=== PATIENT | male | born 1950 | race Caucasian/White ===

== ENCOUNTER 2021-09-29 17:13 | Emergency (ER) | payer MEDICARE, OTHER ==
[~2021-09-29 17:13] MED LIST: ALDACTONE100 MG PO; ASPIRIN EC81 MG PO; IRON18 MG PO; ISOSORBIDE MONO60 MG PO; LIPITOR40 M1 PO; METFORMIN HCL500 MG PO; MIDODRINE HCL10 MG PO; ONDANSETRON ODT4 MG PO; PLAVIX75 MG PO; PROTONIX 40MG T40 MG PO; RANEXA500 MG PO
[2021-09-29 17:48] LABS: BASOPHIL 0.7 % (0-2); EOSINOPHIL 0.9 % (0-7); HCT 30.6 % (42.0-52.0); HGB 10.2 g/dl (13.2-18.0); LYMPHOCYTE 6.1 % (15-48); MCH 32.1 pg (25.0-31.0); MCHC 33.3 g/dL (32.0-36.0); MCV 96.2 fL (78.0-100.0); MONOCYTE 9.9 % (0-12); MPV 10.3 fL (6.0-9.5); NEUTROPHIL 81.9 % (41-80); NRBC 0; PLT 115 K/uL (150-400); RBC 3.18 M/uL (4.70-6.00); RDW 13.1 % (11.5-14.0); WBC 7.7 K/uL (4.0-10.5)
[2021-09-29 17:51] LABS: INR 1.29 (0.9-1.2); PROTHROMBIN TIME 15.4 SECONDS (11.8-13.4); PTT 37.3 SECONDS (24.4-34.7)
[2021-09-29 18:00] LABS: ALBUMIN 3.9 g/dL (3.4-5.0); BILIRUBIN - TOTAL 1.1 mg/dL (0.2-1.0); BUN/CREAT RATIO (CALC) 18.4 RATIO; CREATININE 1.41 mg/dL (0.67-1.17); GLOBULIN (CALCULATION) 3.2 g/dL; POTASSIUM 4.2 mmol/L (3.5-5.1); TOTAL PROTEIN 7.1 g/dL (6.4-8.2)
[2021-09-29 20:13] LABS: CORONAVIRUS 2019 SARS-COV-2 NEGATIVE (NEGATIVE); INFLUENZA A NAA NEGATIVE (NEGATIVE)
== END 2021-09-30 01:45 | disposition other institution (70) ==
LOC: FER 17:13
PROVIDERS: Emergency Medicine; Internal Medicine
DX: I21.4 Non-ST elevation (NSTEMI) myocardial infarction (principal); I25.10 Atherosclerotic heart disease of native coronary artery without angina pectoris; E11.9 Type 2 diabetes mellitus without complications; Z20.822 Contact with and (suspected) exposure to COVID-19; Z79.84 Long term (current) use of oral hypoglycemic drugs; Z95.810 Presence of automatic (implantable) cardiac defibrillator; Z95.5 Presence of coronary angioplasty implant and graft
CPT/HCPCS: 36415; 71045; 80053; 84484; 85025; 85610; 85730; 93005; J1644; U0002

== ENCOUNTER 2022-01-09 21:14 | Day surgery (SDCO) | payer MEDICARE, OTHER ==
[~2022-01-09] VITALS: Ht 175.3 cm; Wt 88.1 kg
[2022-01-09 21:56] LABS: BASOPHIL 0.6 % (0-2); EOSINOPHIL 1.3 % (0-7); HCT 30.6 % (42.0-52.0); HGB 10.3 g/dl (13.2-18.0); MCH 31.5 pg (25.0-31.0); MCHC 33.7 g/dL (32.0-36.0); MCV 93.6 fL (78.0-100.0); MONOCYTE 10.2 % (0-12); MPV 11.5 fL (6.0-9.5); NEUTROPHIL 80.3 % (41-80); NRBC 0; PLT 125 K/uL (150-400); RBC 3.27 M/uL (4.70-6.00); RDW 14.1 % (11.5-14.0); WBC 10.8 K/uL (4.0-10.5)
[2022-01-09 22:18] LABS: ALBUMIN 3.3 g/dL (3.4-5.0); BILIRUBIN - TOTAL 0.9 mg/dL (0.2-1.0); BUN/CREAT RATIO (CALC) 16.1 RATIO; CREATININE 1.99 mg/dL (0.67-1.17); GLOBULIN (CALCULATION) 3.8 g/dL; POTASSIUM 4.6 mmol/L (3.5-5.1); TOTAL PROTEIN 7.1 g/dL (6.4-8.2)
[2022-01-09 22:43] LABS: CORONAVIRUS 2019 SARS-COV-2 NEGATIVE (NEGATIVE); INFLUENZA A NAA NEGATIVE (NEGATIVE)
[2022-01-10] MEDS ORDERED: FUROSEMIDE 40MG40 MG PO (03:12)
[2022-01-10] MEDS ORDERED: SODIUM BICARBO650 M1 PO (03:13)
[2022-01-10] MEDS ORDERED: AMARYL2 MG PO (03:13)
[2022-01-10] MEDS ORDERED: ISOSORBIDE MONO30 MG PO (03:14)
[2022-01-10] MEDS ORDERED: TOPROL XL25 MG PO (03:15)
[2022-01-10] MEDS ORDERED: TOPROL XL 50 MG50 MG PO (03:15)
[2022-01-10] MEDS ORDERED: NITROQUIK SL0.4 MG SL (03:16)
[2022-01-10 04:09] LABS: BILIRUBIN NEGATIVE (NEGATIVE); BLOOD NEGATIVE Ery/uL (NEGATIVE); CLARITY CLEAR (CLEAR); COLOR YELLOW (YELLOW); GLUCOSE (U) NORMAL (NORMAL); LEUKOCYTES NEGATIVE Leu/uL (NEGATIVE); NITRITE NEGATIVE (NEGATIVE); PROTEIN NEGATIVE (NEGATIVE); pH 6.5 (5.0-9.0)
[2022-01-10 04:20] LABS: URINARY RBC RARE; URINARY WBC RARE
[2022-01-10 04:21] LABS: BACTERIA TRACE
[2022-01-10 06:33] LABS: RETICULOCYTE COUNT 2.8 % (1.0-2.0)
[2022-01-10 07:04] LABS: BUN/CREAT RATIO (CALC) 16.8 RATIO; CREATININE 1.85 mg/dL (0.67-1.17); POTASSIUM 4.9 mmol/L (3.5-5.1)
[2022-01-10 07:26] LABS: IRON % SATURATION 13.2 %SAT (20-50)
--- NOTE | 2022-01-11 01:27 | NUR ---
PT TRANSFER TO MED SURG IN W/C. NO CONCERNS NOTED AT THIS TIME.
[2022-01-11 06:42] LABS: BASOPHIL 0.6 % (0-2); EOSINOPHIL 2.7 % (0-7); HCT 30.4 % (42.0-52.0); HGB 10.2 g/dl (13.2-18.0); LYMPHOCYTE 9.4 % (15-48); MCH 31.4 pg (25.0-31.0); MCHC 33.6 g/dL (32.0-36.0); MCV 93.5 fL (78.0-100.0); MONOCYTE 12.4 % (0-12); MPV 11.3 fL (6.0-9.5); NEUTROPHIL 74.4 % (41-80); NRBC 0; PLT 105 K/uL (150-400); RBC 3.25 M/uL (4.70-6.00); WBC 8.2 K/uL (4.0-10.5)
[2022-01-11 06:45] LABS: INR 1.2 (0.9-1.2); PROTHROMBIN TIME 14.8 SECONDS (11.9-13.9)
[2022-01-11 06:57] LABS: ALBUMIN 3.1 g/dL (3.4-5.0); BUN/CREAT RATIO (CALC) 17.9 RATIO; CREATININE 1.84 mg/dL (0.67-1.17); GLOBULIN (CALCULATION) 3.6 g/dL; MAGNESIUM 2.4 mg/dL (1.8-2.4); TOTAL PROTEIN 6.7 g/dL (6.4-8.2)
[2022-01-11] MEDS ORDERED: PROAMATINE5 MG PO (12:07)
--- NOTE | 2022-01-11 13:25 | NUR ---
01/11/22 Mr. Beckham live at home with his spouse. He has a rw which he uses on occasion. Dr. Mills requested HH to monitor BP. Mr. Beckham declined HH stating he has a BP cuff at home. He was advised to f/up with his PCP, Dr. Yaw Gordillo as soon as possible. Nursing was requested to educate to BP parameters and when he should contact his PCP. A report ws given to Dr. Mills.
== END 2022-01-11 15:24 | disposition home or self-care (01) ==
LOC: FER 21:14 → FTCU 23:35 → FMS 01-11
PROVIDERS: Emergency Medicine; Internal Medicine; Nurse Practitioner Acute Care; ADMIT Internal Medicine
DX: E11.649 Type 2 diabetes mellitus with hypoglycemia without coma (principal); T38.3X5A Adverse effect of insulin and oral hypoglycemic [antidiabetic] drugs, initial encounter; K74.60 Unspecified cirrhosis of liver; K75.81 Nonalcoholic steatohepatitis (NASH); N17.9 Acute kidney failure, unspecified; I13.0 Hypertensive heart and chronic kidney disease with heart failure and stage 1 through stage 4 chronic kidney disease, or unspecified chronic kidney disease; E11.22 Type 2 diabetes mellitus with diabetic chronic kidney disease; N18.30 Chronic kidney disease, stage 3 unspecified; I50.9 Heart failure, unspecified; D64.9 Anemia, unspecified; D69.6 Thrombocytopenia, unspecified; K21.9 Gastro-esophageal reflux disease without esophagitis; M75.02 Adhesive capsulitis of left shoulder; M75.01 Adhesive capsulitis of right shoulder; I25.10 Atherosclerotic heart disease of native coronary artery without angina pectoris; I25.2 Old myocardial infarction; Z79.82 Long term (current) use of aspirin; Z20.822 Contact with and (suspected) exposure to COVID-19
CPT/HCPCS: 36415; 71045; 80048; 80053; 81001; 82728; 82962; 83036; 83540; 83550; 83735; 84484; 85025; 85610; 93005; G0378; U0002